=== PATIENT | female | born 2000 | race Caucasian/White ===

== ENCOUNTER 2019-03-20 12:09 | Emergency (ER) | payer OTHER ==
[~2019-03-20] VITALS: Ht 152.4 cm; Wt 86.2 kg
[2019-03-20] MEDS ORDERED: PREDNISONE10 MG PO (12:40)
[2019-03-20] MEDS ORDERED: KENALOG 0.1%80 GM T (12:40)
[2019-03-20] MEDS ORDERED: VISTARIL50 MG PO (12:40)
== END 2019-03-20 12:51 | disposition home or self-care (01) ==
LOC: ED 12:09
DX: L25.5 Unspecified contact dermatitis due to plants, except food (principal)

== ENCOUNTER 2023-01-05 00:38 | Emergency (ER) | payer SELFPAY ==
[~2023-01-05] VITALS: Ht 165.1 cm; Wt 78.9 kg
[~2023-01-05 00:38] MED LIST: KENALOG 0.1%80 GM T; PREDNISONE10 MG PO; VISTARIL50 MG PO
[2023-01-05] MEDS ORDERED: PROVENTIL HFA6.7 GM PO (00:56)
[2023-01-05] MEDS ORDERED: VIBRA-TAB100 MG PO (00:56)
[2023-01-05] MEDS ORDERED: PREDNISONE10 MG PO (00:56)
== END 2023-01-05 01:12 | disposition home or self-care (01) ==
LOC: ED 00:38
DX: J45.901 Unspecified asthma with (acute) exacerbation (principal)

== ENCOUNTER 2023-10-25 14:21 | Emergency (ER) | payer SELFPAY ==
[~2023-10-25] VITALS: Ht 152.4 cm; Wt 86.2 kg
[~2023-10-25 14:21] MED LIST changes: +PROVENTIL HFA6.7 GM PO; +VIBRA-TAB100 MG PO
== END 2023-10-26 00:47 | disposition home or self-care (01) ==
LOC: ED 14:21
DX: S86.912A Strain of unspecified muscle(s) and tendon(s) at lower leg level, left leg, initial encounter (principal); Z87.891 Personal history of nicotine dependence; X50.1XXA Overexertion from prolonged static or awkward postures, initial encounter; Y93.89 Activity, other specified; Y92.89 Other specified places as the place of occurrence of the external cause; Y99.8 Other external cause status

== ENCOUNTER 2024-02-04 22:14 | Emergency (ER) | payer SELFPAY ==
[~2024-02-04] VITALS: Ht 152.4 cm; Wt 86.2 kg
[2024-02-04] MEDS ORDERED: NORETH-ESTRAD-1 EAC1 PO (22:21)
[2024-02-04] MEDS ORDERED: Doxycycline Hyclate 100 MG CAP PO ONE ×2 (22:30)
== END 2024-02-04 22:44 | disposition home or self-care (01) ==
LOC: ED 22:14
DX: S30.861A Insect bite (nonvenomous) of abdominal wall, initial encounter (principal); W57.XXXA Bitten or stung by nonvenomous insect and other nonvenomous arthropods, initial encounter; Y93.89 Activity, other specified; Y92.89 Other specified places as the place of occurrence of the external cause; Y99.0 Civilian activity done for income or pay

== ENCOUNTER 2024-08-04 09:58 | Emergency (ER) | payer SELFPAY ==
[~2024-08-04] VITALS: Ht 152.4 cm; Wt 95.4 kg
[~2024-08-04 09:58] MED LIST changes: +NORETH-ESTRAD-1 EAC1 PO
== END 2024-08-04 11:10 | disposition home or self-care (01) ==
LOC: ED 09:58
DX: S93.401A Sprain of unspecified ligament of right ankle, initial encounter (principal); J45.909 Unspecified asthma, uncomplicated; W10.8XXA Fall (on) (from) other stairs and steps, initial encounter; Y93.89 Activity, other specified; Y92.009 Unspecified place in unspecified non-institutional (private) residence as the place of occurrence of the external cause; Y99.8 Other external cause status